=== PATIENT | male | born 1970 | race Caucasian/White ===

== ENCOUNTER 2016-12-16 07:51 | Emergency (ER) | payer SELFPAY ==
[~2016-12-16] VITALS: Ht 180.3 cm; Wt 101.3 kg
[2016-12-16] MEDS ORDERED: NORCO 5/3251 TABLET PO (08:16)
[2016-12-16 08:56] VITALS: BP 164/104
== END 2016-12-16 09:04 | disposition home or self-care (01) ==
LOC: EME 07:51
DX: K02.9 Dental caries, unspecified (principal); H92.02 Otalgia, left ear; Z88.0 Allergy status to penicillin
CPT/HCPCS: 99281; 99283

== ENCOUNTER 2017-10-20 14:08 | Emergency (ER) | payer BC ==
[~2017-10-20] VITALS: Ht 177.8 cm; Wt 112.0 kg
[~2017-10-20 14:08] MED LIST: NORCO 5/3251 TABLET PO
[2017-10-20 16:31] LABS: BASOPHIL (%) 0.6 % (0-1); BASOPHIL COUNT 0.1 K/uL (0-0.1); EOSINOPHIL (%) 2.4 % (0-5); EOSINOPHIL COUNT 0.2 K/uL (0-0.3); HEMATOCRIT 44.2 % (38.0-50.0); HEMOGLOBIN 15.3 G/DL (12.5-16.6); IMMATURE GRANULOCYTE (%) 0.1 % (0.0-0.7); LYMPHOCYTE (%) 30.3 % (15-42); LYMPHOCYTE COUNT 2.4 K/uL (1.0-2.8); MCH 29.1 PG (29.0-34.0); MCHC 34.6 G/DL (30.0-36.0); MCV 84.2 FL (86-99); MONOCYTE (%) 12.5 % (3-12); NEUTROPHIL (%) 54.1 % (45-76); NEUTROPHIL COUNT 4.2 K/uL (1.8-6.4); PLATELET COUNT 227 K/uL (156-360); RBC DIS.WIDTH-CV 12.7 % (11.8-14.6); RBC DIS.WIDTH-SD 38.5 % (39-53); RED BLOOD COUNT 5.25 M/uL (4.00-5.50); WHITE BLOOD COUNT 7.8 K/uL (4.1-10.2)
[2017-10-20 16:39] LABS: CHLORIDE 105 mEq/L (99-109); POTASSIUM 3.8 mEq/L (3.7-5.4); SODIUM 137 mEq/L (136-147)
[2017-10-20 16:40] LABS: GLUCOSE 126 mg/dL (70-99)
[2017-10-20 16:44] LABS: CREATININE 0.7 mg/dL (0.6-1.3); GFR ESTIMATE (CALCULATED) > 59 mL/min/ (58.99-99999)
[2017-10-20 16:45] LABS: UREA NITROGEN (BUN) 12 mg/dL (9-23)
[2017-10-20] MEDS ORDERED: CLEOCIN300 MG PO (17:39)
[2017-10-20 17:49] VITALS: BP 133/80
== END 2017-10-20 17:45 | disposition home or self-care (01) ==
LOC: EME 14:08
PROVIDERS: Emergency Medicine
DX: S80.862A Insect bite (nonvenomous), left lower leg, initial encounter (principal); L03.116 Cellulitis of left lower limb; W57.XXXA Bitten or stung by nonvenomous insect and other nonvenomous arthropods, initial encounter; E78.5 Hyperlipidemia, unspecified; Z88.0 Allergy status to penicillin
CPT/HCPCS: 80048; 85025; 93971; 99281; 99284

== ENCOUNTER 2017-11-29 20:10 | Emergency (ER) | payer BC ==
[~2017-11-29] VITALS: Ht 177.8 cm; Wt 110.9 kg
[~2017-11-29 20:10] MED LIST changes: +CLEOCIN300 MG PO
[2017-11-29] MEDS ORDERED: OMEPRAZOLE40 M1 PO (20:28)
[2017-11-29] MEDS ORDERED: ULTRAM50 MG PO (20:28)
[2017-11-29] MEDS ORDERED: CHOLESTEROL (20:29)
[2017-11-29] MEDS ORDERED: PERCOCET 5/31 TABLET PO (20:46)
[2017-11-29] MEDS ORDERED: ZOFRAN ODT4 MG PO (21:08)
[2017-11-29 21:30] VITALS: BP 135/71
== END 2017-11-29 21:31 | disposition home or self-care (01) ==
LOC: EME 20:10
DX: M25.551 Pain in right hip (principal); Z88.0 Allergy status to penicillin; Z87.891 Personal history of nicotine dependence
CPT/HCPCS: 99281; 99283